=== PATIENT | female | born 1995 | race African-American/Black ===

== ENCOUNTER 2021-04-04 03:00 | Emergency (ER) | payer MEDICAID ==
[~2021-04-04] VITALS: Ht 167.6 cm; Wt 72.6 kg
[2021-04-04 03:18] VITALS: BP_SYST 124
--- NOTE | 2021-04-04 03:18 | NUR ---
Patient to ER bed 8 to gown for evaluation. Side rails up.
--- NOTE | 2021-04-04 03:32 | NUR ---
Dr. Tracy bedside for pt eval
--- NOTE | 2021-04-04 03:40 | NUR ---
Pt BIB family to ED C/O burning / painful urination, pt states she has hx of having multiple UTIs No other significant Hx VSS no s/s of acute distress Resting on gurney rails up
[2021-04-04] MEDS ORDERED: FLUC200T PO (03:43)
[2021-04-04] MEDS ORDERED: CEPH250C PO (03:43)
[2021-04-04 03:55] VITALS: BP_SYST 124
--- NOTE | 2021-04-04 03:55 | NUR ---
Patient given written and verbal discharge instructions and verbalizes understanding. ER MD discussed with patient the results and treatment provided. Patient in stable condition. ID arm band removed. Rx of Keflex and Diflucan given. Patient educated on pain management and to follow up with PMD. Pain Scale 0/10 Opportunity for questions provided and answered. Medication side effect fact sheet provided.
== END 2021-04-04 03:55 | disposition home or self-care (01) ==
LOC: SED 03:00
DX: N39.0 Urinary tract infection, site not specified (principal); R30.0 Dysuria; Z79.899 Other long term (current) drug therapy
CPT/HCPCS: 99283

== ENCOUNTER 2022-02-25 02:38 | Emergency (ER) | payer MEDICAID ==
[~2022-02-25] VITALS: Ht 167.6 cm; Wt 68.0 kg
[~2022-02-25 02:38] MED LIST: CEPH250C PO; FLUC200T PO
[2022-02-25 02:46] VITALS: BP_SYST 144
--- NOTE | 2022-02-25 02:49 | NUR ---
Patient to ER bed 6 to gown for evaluation. Side rails up. Report given to SHERI JOHNSON(REG).
--- NOTE | 2022-02-25 02:56 | NUR ---
Patient is alert and oriented to person, place, time. NAD, AFEBRILE, C/O 8/10 PAIN ON R FOOT. PER PT, SHE'S BEEN TAKING IBUPROFEN AND TYLENOL AT HOME AND PT HASN'T BEEN PUTTING WEIGHT ON HER RIGHT FOOT.
--- NOTE | 2022-02-25 03:15 | NUR ---
ER at bedside examining patient.
[2022-02-25 03:47] VITALS: BP_SYST 124
--- NOTE | 2022-02-25 03:49 | NUR ---
Patient given written and verbal discharge instructions and verbalizes understanding. ER MD discussed with patient the results and treatment provided. Patient in stable condition. ID arm band removed.Patient educated on pain management and to follow up with PMD. Pain Scale [0/10]. Opportunity for questions provided and answered. Medication side effect fact sheet provided. - ELIZABETH WADE
== END 2022-02-25 03:47 | disposition home or self-care (01) ==
LOC: SED 02:38
DX: M79.671 Pain in right foot (principal); Z79.899 Other long term (current) drug therapy
CPT/HCPCS: 99283

== ENCOUNTER 2022-08-24 17:23 | Emergency (ER) | payer MEDICAID ==
[~2022-08-24] VITALS: Ht 167.6 cm; Wt 63.5 kg
[2022-08-24 17:32] VITALS: BP_SYST 137
[2022-08-24] MEDS ORDERED: METOCLOPRAMIDE HCL 10 MG/2 ML VIAL IVP ONE (17:45)
[2022-08-24] MEDS ORDERED: DIPHENHYDRAMINE INJ 50 MG/ML VIAL IVP ONE (17:45)
[2022-08-24] MEDS ORDERED: ONDANSETRON HCL 4 MG/2 ML VIAL IVP ONE (17:45)
[2022-08-24] MEDS ORDERED: NACL 0.9% 1,000 ML IV ONE (17:45)
[2022-08-24 18:18] LABS: CALCIUM 11.4 mg/dL (8.4-11.0); CREATININE 2.56 mg/dL (0.55-1.30)
[2022-08-24 18:23] LABS: ALBUMIN 5.7 g/dL (3.4-4.8); TOTAL BILIRUBIN 1.4 mg/dL (0.0-1.0)
[2022-08-24 18:24] LABS: HEMATOCRIT 48.4 % (36-48); MEAN CORPUSCULAR HEMOGLOBIN 29 pg (27-31); MEAN CORPUSCULAR HGB CONC 33 % (32-36); MEAN CORPUSCULAR VOLUME 87 fL (79.0-98.0); PLATELET COUNT (AUTO) 384 K/uL (130-430); RED BLOOD CELL COUNT(AUTO) 5.59 MIL/uL (4.2-6.2); RED CELL DISTRIBUTION WIDTH 13.8 % (9.0-15.0); WHITE BLOOD COUNT (AUTO) 22.2 K/uL (4.8-10.8)
[2022-08-24 18:42] LABS: BAND % (MANUAL) 10 % (0-6); BASOPHILS % (MANUAL) 0 % (0-2); EOSINOPHILS % (MANUAL) 0 % (0-7); LYMPHOCYTES % (MANUAL) 0 % (20-46); MONOCYTES % (MANUAL) 4 % (0-11)
[2022-08-24] MEDS ORDERED: KETOROLAC TROMETHAMINE 30 MG VIAL IVP ONE (20:30)
[2022-08-24] MEDS ORDERED: SULFAMETHOXAZOLE/TRIMETHOPR DS 1 TABLET PO ONE (20:30)
[2022-08-24 20:42] LABS: BILIRUBIN,URINE 2+ (NEGATIVE); CLARITY/URINE SL CLOUDY (CLEAR); GLUCOSE,URINE NEGATIVE (NEGATIVE); KETONES,URINE 1+ (NEGATIVE); NITRITE, URINE POSITIVE (NEGATIVE); PH,URINE 5.5 (5.0-8.0); PROTEIN URINE 2+ (NEGATIVE)
[2022-08-24] MEDS ORDERED: cefTRIAXone 1 GM in D5W 50 ML IV ONE (20:45)
[2022-08-24] MEDS ORDERED: cefTRIAXone 1 GM VIAL ONE (20:54)
[2022-08-24 20:55] LABS: BLOOD, URINE TRACE (NEGATIVE); COLOR,URINE AMBER (YELLOW); LEUKOCYTE ESTERASE ,URINE TRACE (NEGATIVE)
[2022-08-24 20:56] LABS: BACTERIA,URINE MODERATE /HPF (None Seen); CALCIUM OXALATE CRYSTALS,UR 0-10 /HPF (None Seen); FINE GRANULAR CASTS,URINE 0-10 /LPF (None Seen); MUCUS,URINE None Seen /LPF (None Seen); RBC,URINE 0-3 /HPF (0-3)
[2022-08-24] MEDS ORDERED: SULF1TAB48 PO (21:58)
[2022-08-24] MEDS ORDERED: ONDA-8 TL (21:58)
[2022-08-24 22:15] VITALS: BP_SYST 129
== END 2022-08-24 22:15 | disposition left against medical advice (07) ==
LOC: SED 17:23
DX: K52.9 Noninfective gastroenteritis and colitis, unspecified (principal); R11.2 Nausea with vomiting, unspecified; N17.9 Acute kidney failure, unspecified; Z79.899 Other long term (current) drug therapy
CPT/HCPCS: 99285; 96365; 96375; 76705; 96361; 85027; 80053; 81000; 84703; 83690; 83735; 85007; 87040; 87086; 36415; J0696; J1200; J1885; J2765; J2405; J7030

== ENCOUNTER 2022-09-09 00:33 | Emergency (ER) | payer MEDICAID ==
[~2022-09-09] VITALS: Ht 167.6 cm; Wt 68.0 kg
[~2022-09-09 00:33] MED LIST changes: +ONDA-8 TL; +SULF1TAB48 PO
[2022-09-09 00:56] VITALS: BP_SYST 121
--- NOTE | 2022-09-09 01:02 | NUR ---
BILATERAL FLANK PAIN STARTED THIS AM THOUGHT SHE WOULD REST IT OFF, TOOK TYLENOL 2 HOURS AGO FOR FEVER 103, [place]
--- NOTE | 2022-09-09 01:10 | NUR ---
ERMD AT BEDSIDE
[2022-09-09] MEDS ORDERED: NACL 0.9% 1,000 ML IV ONE (01:15)
[2022-09-09] MEDS ORDERED: MORPHINE 4 MG INJ. 4 MG/ML VIAL IVP ONE (01:15)
[2022-09-09] MEDS ORDERED: ONDANSETRON HCL 4 MG/2 ML VIAL IVP ONE (01:15)
--- NOTE | 2022-09-09 01:19 | NUR ---
PT REFUSE GOWN AT THIS TIME
[2022-09-09 01:27] LABS: BILIRUBIN,URINE NEGATIVE (NEGATIVE); BLOOD, URINE NEGATIVE (NEGATIVE); CLARITY/URINE SL CLOUDY (CLEAR); COLOR,URINE YELLOW (YELLOW); GLUCOSE,URINE NEGATIVE (NEGATIVE); KETONES,URINE TRACE (NEGATIVE); LEUKOCYTE ESTERASE ,URINE NEGATIVE (NEGATIVE); NITRITE, URINE NEGATIVE (NEGATIVE); PROTEIN URINE 1+ (NEGATIVE)
[2022-09-09 01:28] LABS: HEMOGLOBIN 13.6 g/dL (12.0-16.0)
[2022-09-09 01:41] LABS: BASOPHILS % (AUTO) 0.6 % (0.0-2.0); EOSINOPHILS # (AUTO) 0.2 K/uL (0.0-0.4); EOSINOPHILS % (AUTO) 2.5 % (0.0-4.0); HEMATOCRIT 40.8 % (36-48); LYMPHOCYTES # (AUTO) 0.8 K/uL (1.0-5.5); LYMPHOCYTES % (AUTO) 12.6 % (20.5-51.5); MEAN CORPUSCULAR HEMOGLOBIN 29 pg (27-31); MEAN CORPUSCULAR HGB CONC 33 % (32-36); MEAN CORPUSCULAR VOLUME 86 fL (79.0-98.0); MONOCYTES % (AUTO) 15.3 % (1.7-9.3); NEUTROPHILS # (AUTO) 4.5 K/uL (1.8-7.7); PLATELET COUNT (AUTO) 250 K/uL (130-430); RED BLOOD CELL COUNT(AUTO) 4.72 MIL/uL (4.2-6.2); RED CELL DISTRIBUTION WIDTH 13.7 % (9.0-15.0); WHITE BLOOD COUNT (AUTO) 6.5 K/uL (4.8-10.8)
[2022-09-09 01:56] LABS: ALBUMIN 4.1 g/dL (3.4-4.8); CREATININE 1.09 mg/dL (0.55-1.30); TOTAL BILIRUBIN 0.4 mg/dL (0.0-1.0)
[2022-09-09 02:10] LABS: BACTERIA,URINE FEW /HPF (None Seen); RBC,URINE 0-3 /HPF (0-3); WBC,URINE 0-3 /HPF (0-3)
--- NOTE | 2022-09-09 04:23 | NUR ---
Patient given written and verbal discharge instructions and verbalizes understanding. ER MD discussed with patient the results and treatment provided. Patient in stable condition. ID arm band removed. IV catheter removed intact and dressing applied, no active bleeding. Rx of [0] given. Patient educated on pain management and to follow up with PMD. Pain Scale [0]. Opportunity for questions provided and answered. Medication side effect fact sheet provided.
== END 2022-09-09 04:23 | disposition home or self-care (01) ==
LOC: SED 00:33
DX: R10.9 Unspecified abdominal pain (principal); R50.9 Fever, unspecified; R11.0 Nausea; Z79.899 Other long term (current) drug therapy
CPT/HCPCS: 99285; 74176; 96374; 96361; 96375; 80053; 81000; 83690; 85025; 87086; 36415; 76376; 81025; J2405; J2270; J7030